=== PATIENT | female | born 1950 | race Caucasian/White ===

== ENCOUNTER 2022-01-26 16:13 | Inpatient (IN) ==
[2022-01-26] MEDS ORDERED: Ondansetron 4 MG/2 ML VIAL IVP PRN (21:06)
[2022-01-26] MEDS ORDERED: Naloxone 0.4 MG/ML INJ IVP PRN (21:06)
[2022-01-26] MEDS ORDERED: *HR* Dextrose 50 % in Water (Syg) 50 ML SYRINGE IVP PRN (22:43)
[2022-01-26] MEDS ORDERED: Dextrose Gel 15 GM/37.5 ML TUBE PO PRN ×2 (22:43)
[2022-01-26] MEDS ORDERED: D5% in Water 1,000 ML IVC PRN (22:43)
[2022-01-26] MEDS: Apixaban 5 MG TABLET PO SCH (23:12)
[2022-01-27] MEDS: Melatonin 3 MG TABLET PO PRN (01:23)
[2022-01-27] MEDS ORDERED: Perflutren Lipid Microsphere 1.3 ML in 0.9 % Sodium Chloride 8.7 ML IVP PRN (02:18)
[2022-01-27 03:15] LABS: Basophils # 0.1 K/mcL (0.0-0.2); Basophils % 0.9 %; Eosinophils # 0.2 K/mcL (0.0-0.6); Eosinophils % 2.3 %; Hematocrit 44.8 % (35.3-44.9); Hemoglobin 13.8 g/dL (11.5-15.4); Immature Granulocytes % 0.4 % (0-4); Lymphocytes # 1.6 K/mcL (0.6-4.6); Mean Corpuscular HGB Conc 30.8 g/dL (31.6-35.5); Mean Corpuscular Hemoglobin 27.4 pg (28.0-33.3); Mean Corpuscular Volume 89.1 fL (83.0-100.0); Mean Platelet Volume 10.4 fL (9.4-12.4); Monocytes % 11.1 %; Neutrophils # 6.1 K/mcL (1.6-8.9); Platelet Count 203 K/mcL (140-400); Red Blood Count 5.03 M/mcL (3.82-4.97); Red Cell Distribution Width 14.7 % (11.5-14.5); Segmented Neutrophils % 67.3 %; White Blood Count 9.1 K/mcL (4.3-11.1)
[2022-01-27 03:40] LABS: Alanine Aminotransferase 6 Units/L (7-52); Albumin 3.5 g/dL (3.5-5.7); Albumin/Globulin Ratio 1.2 (1.1-2.2); Alkaline Phosphatase 61 Units/L (34-104); Aspartate Amino Transferase 9 Units/L (13-39); BUN/Creatinine Ratio 15 (6-26); Bilirubin,Total 0.5 mg/dL (0.3-1.0); Blood Urea Nitrogen 13 mg/dL (8-23); Carbon Dioxide 25 mEq/L (23-29); Chloride 101 mEq/L (98-107); Glucose 161 mg/dL (70-105); Magnesium 1.8 mg/dL (1.6-2.6); Osmolality,Calculated 278 (280-300); Phosphorous 3.4 mg/dL (2.7-4.5); Potassium 3.9 mEq/L (3.5-5.1); Sodium 132 mEq/L (136-145); Total Protein 6.5 g/dL (6.4-8.9); Troponin I < 0.03 ng/mL (< 0.04); eGFR For African Americans > 60 (> 60); eGFR For Non-African Americans > 60 (> 60)
[2022-01-27] MEDS: Apixaban 5 MG TABLET PO SCH ×2 (07:59→21:40)
[2022-01-27] MEDS: DilTIAZem CD (24hr) 120 MG CAP.ER.24H PO SCH (07:59)
[2022-01-27] MEDS: Aspirin Enteric Coated 81 MG Tablet PO SCH (08:00)
[2022-01-27] MEDS: Insulin LISPRO 300 UNITS/3 ML VIAL SUBQ SCH ×4 (08:01→21:33)
[2022-01-27] MEDS: Acetaminophen 325 MG TABLET PO PRN ×2 (08:08→22:54)
[2022-01-27] MEDS ORDERED: Furosemide 40 MG/4 ML VIAL IVP SCH (09:00)
[2022-01-27] MEDS ORDERED: SUMAtriptan 6 MG/0.5 ML SQ ONE (14:05)
[2022-01-27] MEDS: Furosemide 40 MG/4 ML VIAL IVP SCH (16:42)
[2022-01-28 01:53] LABS: BUN/Creatinine Ratio 13 (6-26); Blood Urea Nitrogen 10 mg/dL (8-23); Calcium 8.9 mg/dL (8.6-10.3); Carbon Dioxide 30 mEq/L (23-29); Chloride 102 mEq/L (98-107); Glucose 127 mg/dL (70-105); Osmolality,Calculated 283 (280-300); Phosphorous 4.2 mg/dL (2.7-4.5); Sodium 136 mEq/L (136-145); eGFR For African Americans > 60 (> 60); eGFR For Non-African Americans > 60 (> 60)
[2022-01-28] MEDS: Insulin LISPRO 300 UNITS/3 ML VIAL SUBQ SCH ×4 (08:56→20:15)
[2022-01-28] MEDS: Furosemide 40 MG/4 ML VIAL IVP SCH (09:02)
[2022-01-28] MEDS: DilTIAZem CD (24hr) 120 MG CAP.ER.24H PO SCH (09:02)
[2022-01-28] MEDS: Aspirin Enteric Coated 81 MG Tablet PO SCH (09:02)
[2022-01-28] MEDS: Apixaban 5 MG TABLET PO SCH ×2 (09:04→20:14)
[2022-01-28] MEDS: Acetaminophen 325 MG TABLET PO PRN ×3 (09:07→21:58)
[2022-01-28] MEDS ORDERED: Ipratropium Neb 0.5 MG NEBULIZER IH PRN (09:47)
[2022-01-28] MEDS ORDERED: GuaiFENesin Liq 200 MG/10 ML UDC PO PRN (09:48)
[2022-01-28] MEDS: Topiramate 25 MG TABLET PO SCH ×2 (10:55→20:14)
[2022-01-28 12:49] LABS: Adenovirus Not Detected (Not Detect); Bordetella Pertussis Not Detected (Not Detect); Chlamydophila pneumoniae Not Detected (Not Detect); Coronavirus 229E Not Detected (Not Detect); Coronavirus HKU1 Not Detected (Not Detect); Coronavirus NL63 Not Detected (Not Detect); Coronavirus OC43 Not Detected (Not Detect); Human Metapneumovirus Not Detected (Not Detect); Human Rhinovirus/Enterovirus Not Detected (Not Detect); Influenza A Subtype 2009 H1 Not Detected (Not Detect); Influenza B Not Detected (Not Detect); Mycoplasma pneumoniae Not Detected (Not Detect); Parainfluenza Virus 1 Not Detected (Not Detect); Parainfluenza Virus 2 Not Detected (Not Detect); Parainfluenza Virus 3 Not Detected (Not Detect); Parainfluenza Virus 4 Not Detected (Not Detect); Respiratory Syncytial Virus Not Detected (Not Detect); SARS-CoV-2 Not Detected (Not Detect)
[2022-01-28] MEDS: Gabapentin 100 MG CAPSULE PO SCH ×2 (15:10→20:14)
[2022-01-28] MEDS: Levalbuterol Neb 0.63 MG/3 ML IH SCH ×2 (17:39→20:29)
[2022-01-28] MEDS: Melatonin 3 MG TABLET PO PRN (20:14)
[2022-01-28] MEDS: Mirtazapine 15 MG TABLET PO SCH (20:14)
[2022-01-29 03:00] LABS: BUN/Creatinine Ratio 12 (6-26); Blood Urea Nitrogen 9 mg/dL (8-23); Carbon Dioxide 30 mEq/L (23-29); Chloride 100 mEq/L (98-107); Glucose 141 mg/dL (70-105); Osmolality,Calculated 275 (280-300); Potassium 4.1 mEq/L (3.5-5.1); Sodium 132 mEq/L (136-145); eGFR For African Americans > 60 (> 60); eGFR For Non-African Americans > 60 (> 60)
[2022-01-29] MEDS ORDERED: 0.9 % Sodium Chloride 1,000 ML IVC ONE (03:49)
[2022-01-29] MEDS: Topiramate 25 MG TABLET PO SCH ×2 (08:25→23:02)
[2022-01-29] MEDS: Acetaminophen 325 MG TABLET PO PRN (08:25)
[2022-01-29] MEDS: Insulin LISPRO 300 UNITS/3 ML VIAL SUBQ SCH ×4 (08:26→23:01)
[2022-01-29] MEDS: Apixaban 5 MG TABLET PO SCH ×2 (08:26→23:03)
[2022-01-29] MEDS: Aspirin Enteric Coated 81 MG Tablet PO SCH (08:26)
[2022-01-29] MEDS: Gabapentin 100 MG CAPSULE PO SCH ×3 (08:26→23:03)
[2022-01-29] MEDS: Levalbuterol Neb 0.63 MG/3 ML IH SCH ×2 (10:09→22:09)
[2022-01-29] MEDS: Furosemide 40 MG TABLET PO SCH (11:25)
[2022-01-29] MEDS: Melatonin 3 MG TABLET PO PRN (23:02)
[2022-01-29] MEDS: Mirtazapine 15 MG TABLET PO SCH (23:03)
[2022-01-30] MEDS: Acetaminophen 325 MG TABLET PO PRN (02:02)
[2022-01-30 06:58] LABS: Basophils # 0.1 K/mcL (0.0-0.2); Basophils % 0.7 %; Eosinophils # 0.2 K/mcL (0.0-0.6); Eosinophils % 2.9 %; Hematocrit 44.1 % (35.3-44.9); Hemoglobin 13.3 g/dL (11.5-15.4); Immature Granulocytes % 0.1 % (0-4); Lymphocytes # 0.9 K/mcL (0.6-4.6); Lymphocytes % 12.6 %; Mean Corpuscular HGB Conc 30.2 g/dL (31.6-35.5); Mean Corpuscular Hemoglobin 27.8 pg (28.0-33.3); Mean Corpuscular Volume 92.3 fL (83.0-100.0); Mean Platelet Volume 9.9 fL (9.4-12.4); Monocytes # 0.8 K/mcL (0.0-1.3); Monocytes % 11.4 %; Neutrophils # 5.2 K/mcL (1.6-8.9); Platelet Count 176 K/mcL (140-400); Red Blood Count 4.78 M/mcL (3.82-4.97); Red Cell Distribution Width 14.4 % (11.5-14.5); Segmented Neutrophils % 72.3 %; White Blood Count 7.2 K/mcL (4.3-11.1)
[2022-01-30 07:17] LABS: BUN/Creatinine Ratio 14 (6-26); Blood Urea Nitrogen 9 mg/dL (8-23); Calcium 9.1 mg/dL (8.6-10.3); Carbon Dioxide 29 mEq/L (23-29); Chloride 102 mEq/L (98-107); Glucose 139 mg/dL (70-105); Osmolality,Calculated 279 (280-300); Potassium 3.9 mEq/L (3.5-5.1); Sodium 134 mEq/L (136-145); eGFR For African Americans > 60 (> 60); eGFR For Non-African Americans > 60 (> 60)
[2022-01-30] MEDS: Levalbuterol Neb 0.63 MG/3 ML IH SCH ×2 (07:33→21:15)
[2022-01-30] MEDS: Insulin LISPRO 300 UNITS/3 ML VIAL SUBQ SCH ×4 (08:43→21:02)
[2022-01-30] MEDS: Gabapentin 100 MG CAPSULE PO SCH ×3 (08:45→20:51)
[2022-01-30] MEDS: Topiramate 25 MG TABLET PO SCH ×2 (08:45→20:53)
[2022-01-30] MEDS: Aspirin Enteric Coated 81 MG Tablet PO SCH (08:45)
[2022-01-30] MEDS: Apixaban 5 MG TABLET PO SCH ×2 (08:45→21:01)
[2022-01-30] MEDS: Furosemide 40 MG TABLET PO SCH (08:45)
[2022-01-30] MEDS ORDERED: Saline Nasal Spray 44 ML BOTTLE NS PRN (14:19)
[2022-01-30] MEDS: Fluticasone Propionate Nasal 50 MCG/SPRAY BOTTLE NS SCH (16:33)
[2022-01-30] MEDS: Mirtazapine 15 MG TABLET PO SCH (20:52)
[2022-01-30] MEDS: Melatonin 3 MG TABLET PO PRN (20:59)
[2022-01-31 02:13] LABS: Blood Urea Nitrogen 11 mg/dL (8-23); Calcium 9.1 mg/dL (8.6-10.3); Carbon Dioxide 27 mEq/L (23-29); Chloride 103 mEq/L (98-107); Glucose 153 mg/dL (70-105); Osmolality,Calculated 280 (280-300); Potassium 3.7 mEq/L (3.5-5.1); Sodium 134 mEq/L (136-145)
[2022-01-31 03:23] LABS: BUN/Creatinine Ratio 17 (6-26); eGFR For African Americans > 60 (> 60); eGFR For Non-African Americans > 60 (> 60)
[2022-01-31] MEDS: Gabapentin 100 MG CAPSULE PO SCH ×3 (09:05→21:40)
[2022-01-31] MEDS: Apixaban 5 MG TABLET PO SCH (09:06)
[2022-01-31] MEDS: Furosemide 40 MG TABLET PO SCH (09:06)
[2022-01-31] MEDS: Topiramate 25 MG TABLET PO SCH ×2 (09:06→21:42)
[2022-01-31] MEDS: Aspirin Enteric Coated 81 MG Tablet PO SCH (09:07)
[2022-01-31] MEDS: Fluticasone Propionate Nasal 50 MCG/SPRAY BOTTLE NS SCH (09:07)
[2022-01-31] MEDS: Insulin LISPRO 300 UNITS/3 ML VIAL SUBQ SCH ×4 (09:07→21:30)
[2022-01-31] MEDS: Levalbuterol Neb 0.63 MG/3 ML IH SCH ×2 (10:02→20:15)
[2022-01-31] MEDS ORDERED: Iopamidol - 370 500 ML MLS IVP ONE (12:32)
[2022-01-31] MEDS: Acetaminophen 325 MG TABLET PO PRN (14:44)
[2022-01-31 17:24] LABS: Bilirubin,Urine Negative (Negative); Blood,Urine Negative (Negative); Clarity,Urine Clear (Clear); Color,Urine Colorless (Yellow); Glucose,Urine (UA) Normal (Normal); Ketones,Urine Negative (Negative); Leukocyte Esterase,Urine Trace (Negative); Nitrite,Urine Negative (Negative); PH,Urine 7.5 pH Units (5.0-8.0); Protein,Urine Negative (Neg-Trace); RBC,Urine 0-3 per hpf (0-3); Specific Gravity,Urine > 1.030 (1.010-1.025); Squamous Epithelial Cell,Urine Few per hpf (None-Few); Urobilinogen,Urine Normal (Normal)
[2022-01-31] MEDS: Mirtazapine 15 MG TABLET PO SCH (21:41)
[2022-02-01] MEDS: Acetaminophen 325 MG TABLET PO PRN ×2 (02:16→08:13)
[2022-02-01 03:50] LABS: BUN/Creatinine Ratio 14 (6-26); Blood Urea Nitrogen 9 mg/dL (8-23); Calcium 9.2 mg/dL (8.6-10.3); Carbon Dioxide 27 mEq/L (23-29); Chloride 104 mEq/L (98-107); Glucose 129 mg/dL (70-105); Osmolality,Calculated 280 (280-300); Potassium 3.8 mEq/L (3.5-5.1); Sodium 135 mEq/L (136-145); eGFR For African Americans > 60 (> 60); eGFR For Non-African Americans > 60 (> 60)
[2022-02-01] MEDS: Insulin LISPRO 300 UNITS/3 ML VIAL SUBQ SCH (07:41)
[2022-02-01 07:42] VITALS: BP 103/69; PULSE 89; TEMP 97.6
[2022-02-01] MEDS: Furosemide 40 MG TABLET PO SCH (08:13)
[2022-02-01] MEDS: Topiramate 25 MG TABLET PO SCH (08:13)
[2022-02-01] MEDS: Aspirin Enteric Coated 81 MG Tablet PO SCH (08:13)
[2022-02-01] MEDS: Gabapentin 100 MG CAPSULE PO SCH (08:14)
[2022-02-01] MEDS: Levalbuterol Neb 0.63 MG/3 ML IH SCH (09:52)
[2022-02-01 11:05] VITALS: O2SAT 95
[2022-02-01] MEDS: Fluticasone Propionate Nasal 50 MCG/SPRAY BOTTLE NS SCH (11:50)
== END 2022-02-01 12:26 | disposition home health service (06) | DRG 291 ==
LOC: 3ANU → SUATTDRO 20:28
PROVIDERS: ADMIT Internal Medicine; ATTEND Family Medicine